=== PATIENT | female | born 1945 | race Caucasian/White ===

== ENCOUNTER 2023-06-07 12:05 | Observation (INO) | payer MEDICARE, MEDICAID, SELFPAY ==
[2023-06-07] VITALS (87 sets, daily range): BP systolic 85–142; BP diastolic 48–81; PULSE 43–75; RESP 10–29; TEMP 35.4–37.2; O2SAT 93–98; BMI 32.3; BMI 19.6
--- NOTE | 2023-06-07 12:07 | ECG_ITS ---
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
--- NOTE | 2023-06-07 12:08 | CT_ITS ---
The [address] [address] Patient Name: JAI CARRERA MRN: [id number] date: 1945 Sex: F Assigned Patient Location: ER Current Patient Location: ED.MAIN Accession/Order Number: [id number] Exam Date: 06/07/2023 12:18 Report Date: 06/07/2023 12:42 At the request of: ALYCE FELIZ Procedure: CT head/brain wo con CT head/brain wo con: 06/07/2023 12:18 PM EDT CLINICAL HISTORY: 78 years old Female with fall, hit forehead. TECHNIQUE: CT head/brain wo con was performed without intravenous contrast administration. Axial CT images are obtained as well as sagittal and coronal reformations. Dose reduction techniques were achieved by using automated exposure control and/or adjustment of mA and/or kV according to patient size and/or use of iterative reconstruction technique. COMPARISON: None FINDINGS: The ventricles, gyri, sulcal patterns, and basal cisterns have a normal size and configuration for the patient's age. No intracranial hemorrhage or extra-axial fluid collection is identified. There is no evidence of focal mass or midline shift. Ill-defined hypodense lesions of the periventricular white matter. The basal ganglia and thalami appear normal. The midbrain and cerebellum appear normal. The paranasal sinuses are normally aerated. Mastoid air cells are normally aerated. No appreciable scalp soft tissue swelling or depressed skull fractures are seen. CT/CT head/brain wo con IMPRESSION: No intracranial hemorrhage, mass effect or midline shift. Microvascular ischemic disease. Mild generalized brain atrophy. Electronically authenticated by: ALEJANDRO THOMAS Date: 06/07/2023 12:42
--- NOTE | 2023-06-07 12:08 | CT_ITS ---
The [address] [address] Patient Name: JAI CARRERA MRN: [facility]:[id number] date: 1945 Sex: F Assigned Patient Location: ED.MAIN Current Patient Location: Accession/Order Number: [id number] Exam Date: 06/07/2023 12:18 Report Date: 06/07/2023 12:46 At the request of: ALYCE FELIZ Procedure: CT cervical spine wo con EXAM: CT cervical spine wo con HISTORY: fall COMPARISON: None. TECHNIQUE: Contiguous transaxial images obtained from skullbase through cervical spine without administration of intravenous contrast. Coronal and sagittal reformations were obtained. Dose reduction: mA and/or kV are were adjusted by automated exposure control software based upon patients height and weight. FINDINGS: There is osteopenia of the cervical spine. There is no prevertebral soft tissue swelling or acute cervical spine fracture. There is mild multilevel degenerative disc disease of the cervical spine. There is minimal anterolisthesis of C6 on C7. There is multilevel and bilateral uncovertebral joint osteoarthritis, most pronounced from C3-C4 through C6-C7. There is multilevel and bilateral facet joint osteoarthritis with left C3-C4 facet ankylosis. Uncovertebral and facet joint osteoarthritis contribute to neural foraminal narrowing, most pronounced at C3-C4 bilaterally and C4-C5 on the right. There is atlantodental articulation osteoarthritis. There is partial opacification of caudal mastoid air cells, left greater than right. There is bilateral carotid artery atherosclerosis. CT/CT cervical spine wo con IMPRESSION: 1. No acute cervical spine fracture. 2. Mild degenerative disc disease of the cervical spine with minimal anterolisthesis of C6 on C7. 3. Uncovertebral and facet joint osteoarthritis contribute to neural foraminal narrowing is most pronounced at C3-C4 and C4-C5 as described. 4. Bilateral carotid artery atherosclerosis. Electronically authenticated by: LAKEISHA JOHNSON Date: 06/07/2023 12:46
--- NOTE | 2023-06-07 12:09 | ED.FALL1 ---
HPI - Fall General Chief Complaint: Fall Stated Complaint: FALL/ HEAD INJURY Time Seen by Provider: 06/07/23 12:07 History of Present Illness HPI Narrative: 78-year-old female presented for a fall. She comes in from [facility] AT [facility] where she had an unwitnessed fall. She fell forward out of the chair and hit her forehead. She was transported here by paramedics after they placed a c-collar. She is unable to provide any history, she has dementia. This happened just before coming into the emergency department. Related Data Home Medications Medication Instructions Recorded Confirmed albuterol sulfate 2.5 mg/0.5 mL 2.5 mg inhalation Q4H PRN 06/07/23 06/07/23 solution for nebulization shortness of breath or wheezing alprazolam 0.5 mg tablet (Xanax) 0.5 mg PO QID PRN anxiety 06/07/23 06/07/23 alprazolam 0.5 mg tablet (Xanax) 0.5 mg PO TID 06/07/23 06/07/23 buspirone 10 mg tablet 20 mg PO TID 06/07/23 06/07/23 carvedilol 25 mg tablet (Coreg) 25 mg PO Q12H 06/07/23 06/07/23 cimetidine 300 mg tablet 300 mg PO Q12H 06/07/23 06/07/23 clonidine HCl 0.1 mg tablet 0.1 mg PO TID 06/07/23 06/07/23 divalproex 500 mg tablet,delayed 500 mg PO Q12H 06/07/23 06/07/23 release (Depakote) docusate sodium 100 mg capsule 100 mg PO DAILY 06/07/23 06/07/23 (Colace) hydrochlorothiazide 12.5 mg tablet 12.5 mg PO DAILY 06/07/23 06/07/23 levothyroxine 112 mcg tablet 112 mcg PO DAILY 06/07/23 06/07/23 (Synthroid) oxybutynin chloride 10 mg 10 mg PO DAILY 06/07/23 06/07/23 tablet,extended release 24 hr ziprasidone HCl 80 mg capsule 80 mg PO DAILY 06/07/23 06/07/23 (Geodon) Allergies Allergy/AdvReac Type Severity Reaction Status Date / Time codeine Allergy Verified 06/07/23 12:08 Sulfa (Sulfonamide Allergy Verified 06/07/23 12:08 Antibiotics) Review of Systems ROS Narrative not obtainable, dementia PFSH PFSH Social History Smoking status: Smoker, status unknown Exam Narrative Exam Narrative: Nurses note and vital signs reviewed and patient is not hypoxic. General: The patient appears in no respiratory distress. She has a c-collar in place and is playing with her eyes closed. Skin: Warm, dry, no pallor noted. There is no rash noted. Head: Normocephalic, two erythematous areas present on her left forehead. No laceration. Eye: Normal conjunctiva, no drainage Ears, Nose, Mouth, and Throat: oral mucosa is moist. Nares patent. Cardiovascular: Regular Rate and Rhythm Respiratory: Patient is in no distress, no accessory muscle use, lungs are clear to auscultation, no wheezing, rales or rhonchi GI: nontender Musculoskeletal: no tenderness to all four extremities including her hips. Neurological: nonverbal for me Psychiatric: cannot be assessed Constitutional Vital Signs, click to edit/add: Last Vital Signs Temp 96 F L 06/07/23 14:44 Pulse 53 L 06/07/23 14:44 Resp 16 06/07/23 14:44 BP 118/67 06/07/23 14:30 Pulse Ox 96 06/07/23 14:20 O2 Del Method Room Air 06/07/23 12:08 Course Vital Signs Vital signs: Vital Signs Temperature 95.8 F L 06/07/23 12:08 Pulse Rate 45 L 06/07/23 12:08 Respiratory Rate 20 06/07/23 12:08 Blood Pressure 90/48 L 06/07/23 12:08 Pulse Oximetry 98 06/07/23 12:08 Oxygen Delivery Method Room Air 06/07/23 12:08 Temperature 96 F L 06/07/23 14:44 Pulse Rate 53 L 06/07/23 14:44 Respiratory Rate 16 06/07/23 14:44 Blood Pressure 118/67 06/07/23 14:30 Pulse Oximetry 96 06/07/23 14:20 Oxygen Delivery Method Room Air 06/07/23 12:08 MDM - Fall MDM Narrative Medical decision making narrative: the patient presented for a fall out of the wheelchair. CAT scan of her head and neck is negative. She was found to be hypothermic, 95.8 rectal upon arrival. Urinary tract infection identified. She was also mildly hypotensive but this has responded to IV fluids and her blood pressure is now 118/67. Obtained and she was given IV Rocephin and she's being admitted to the ICU. No family present with whom to discuss the case. Differential Diagnosis Differential diagnosis: Likely syncope and other (cervical spine fracture, intracranial hemorrhage) Lab Data Attestation: I reviewed the patient's lab results. Labs: Lab Results 06/07/23 06/07/23 06/07/23 Range/Units 12:13 12:21 13:10 WBC 6.8 (4.0-11.0) 10^3/uL RBC 3.33 L (4.20-5.40) 10^6/uL Hgb 10.3 L (12.0-16.0) g/dL Hct 31.3 L (36.0-48.0) % MCV 94.0 (81.0-99.0) fL MCH 30.9 (26.7-34.0) pg MCHC 32.9 (29.9-35.2) g/dL RDW 13.8 (11.0-15.0) % Plt Count 237 (150-450) 10^3/uL MPV 10.6 (9.5-13.5) fL Neut % (Auto) 64.6 (43.0-75.0) % Lymph % (Auto) 24.0 (20.5-60.0) % [place] % (Auto) 8.7 (1.7-12.0) % Eos % (Auto) 1.5 (0.9-7.0) % Baso % (Auto) 0.3 (0.2-2.0) % Neut # (Auto) 4.4 (1.4-6.5) 10^3/uL Lymph # (Auto) 1.6 (1.2-3.8) 10^3/uL [place] # (Auto) 0.6 (0.3-0.8) 10^3/uL Eos # (Auto) 0.1 (0.0-0.7) 10^3/uL Baso # (Auto) 0.0 (0.0-0.1) 10^3/uL Abs Immat Gran (auto) 0.06 H (0.00-0.03) 10^3/uL Imm/Tot Granulo (auto) 0.9 H (0.0-0.5) % Sodium 140 (136-145) mmol/L Potassium 3.5 (3.5-5.1) mmol/L Chloride 104 (98-107) mmol/L Carbon Dioxide 30.9 (21.0-32.0) mmol/L Anion Gap 8.6 BUN 50.0 H (7.0-18.0) mg/dL Creatinine 1.57 H (0.55-1.02) mg/dL Est GFR ( Amer) 39 L (>=60) Est GFR (Non-Af Amer) 32 L (>=60) BUN/Creatinine Ratio 31.8 Glucose 109 H (74-106) mg/dL Calcium 8.6 (8.5-10.1) mg/dL Troponin I High Sens 8.0 (4.0-51.3) pg/mL Urine Color Lt. yellow (YELLOW) Urine Clarity Clear (CLEAR) Urine pH 6.0 (5.0-9.0) Ur Specific Babb 1.020 (1.005-1.025) Urine Protein 30 A (NEG/TRACE) mg/dL Urine Glucose (UA) Negative (NEGATIVE) mg/dL Urine Ketones Trace A (NEGATIVE) mg/dL Urine Occult Blood Moderate A (NEGATIVE) Urine Nitrite Positive A (NEGATIVE) Urine Bilirubin Negative (NEGATIVE) Urine Urobilinogen 2.0 A (0.2-1.0) EU/dL Ur Leukocyte Esterase Large A (NEGATIVE) Urine RBC 10-20 A (0-2) #/HPF Urine WBC >100 A (NONE SEEN) #/HPF Ur Squamous Epith Cells Few A (NONE/RARE) #/LPF Urine Bacteria Large A (NONE SEEN) #/HPF Urine Mucus None seen (NONE SEEN) POC Glucose 124 H (74-106) mg/dL Imaging Data chest x-ray, CT brain, CT C-spine: Radiologist's impression: Procedure: CT cervical spine wo con EXAM: CT cervical spine wo con HISTORY: fall COMPARISON: None. TECHNIQUE: Contiguous transaxial images obtained from skullbase through cervical spine without administration of intravenous contrast. Coronal and sagittal reformations were obtained. Dose reduction: mA and/or kV are were adjusted by automated exposure control software based upon patients height and weight. FINDINGS: There is osteopenia of the cervical spine. There is no prevertebral soft tissue swelling or acute cervical spine fracture. There is mild multilevel degenerative disc disease of the cervical spine. There is minimal anterolisthesis of C6 on C7. There is multilevel and bilateral uncovertebral joint osteoarthritis, most pronounced from C3-C4 through C6-C7. There is multilevel and bilateral facet joint osteoarthritis with left C3-C4 facet ankylosis. Uncovertebral and facet joint osteoarthritis contribute to neural foraminal narrowing, most pronounced at C3-C4 bilaterally and C4-C5 on the right. There is atlantodental articulation osteoarthritis. There is partial opacification of caudal mastoid air cells, left greater than right. There is bilateral carotid artery atherosclerosis. IMPRESSION: 1. No acute cervical spine fracture. 2. Mild degenerative disc disease of the cervical spine with minimal anterolisthesis of C6 on C7. 3. Uncovertebral and facet joint osteoarthritis contribute to neural foraminal narrowing is most pronounced at C3-C4 and C4-C5 as described. 4. Bilateral carotid artery atherosclerosis. Electronically authenticated by: LAKEISHA JOHNSON Date: 06/07/2023 12:46 Procedure: CT head/brain wo con CT head/brain wo con: 06/07/2023 12:18 PM EDT CLINICAL HISTORY: 78 years old Female with fall, hit forehead. TECHNIQUE: CT head/brain wo con was performed without intravenous contrast administration. Axial CT images are obtained as well as sagittal and coronal reformations. Dose reduction techniques were achieved by using automated exposure control and/or adjustment of mA and/or kV according to patient size and/or use of iterative reconstruction technique. COMPARISON: None FINDINGS: The ventricles, gyri, sulcal patterns, and basal cisterns have a normal size and configuration for the patient's age. No intracranial hemorrhage or extra-axial fluid collection is identified. There is no evidence of focal mass or midline shift. Ill-defined hypodense lesions of the periventricular white matter. The basal ganglia and thalami appear normal. The midbrain and cerebellum appear normal. The paranasal sinuses are normally aerated. Mastoid air cells are normally aerated. No appreciable scalp soft tissue swelling or depressed skull fractures are seen. IMPRESSION: No intracranial hemorrhage, mass effect or midline shift. Microvascular ischemic disease. Mild generalized brain atrophy. Electronically authenticated by: ALEJANDRO THOMAS Date: 06/07/2023 12:42 Procedure: XR chest 1V XR chest 1V, 06/07/2023 1:30 PM EDT, [place]001 INDICATION: fall cough. COMPARISON: Chest radiograph from 08/25/2021. TECHNIQUE: Frontal view of the chest obtained. FINDINGS: The patient is rotated to the left. The heart is normal in size. Mild aortic calcification is again noted. The pulmonary vasculature is normal. Slight increased density is again seen in the right cardiophrenic angle, likely representing a prominent epicardial fat pad. No acute infiltrate is seen. There is no evidence of pneumothorax or pleural effusion. The osseous structures appear intact. IMPRESSION: No active pulmonary process. No significant interval change is seen. Electronically authenticated by: YUNIOR KRUEGER Date: 06/07/2023 13:48 Critical Care Time Critical Care Time Critical Care Time: Yes Total Critical Care Time: 35 Attestation: Due to the high probability of sudden and clinically significant deterioration in the patient's condition he/she required the highest level of my preparedness to intervene urgently I provided critical care time including documentation time, medication orders and management, reevaluation, vital sign assessment, ordering and reviewing of lab tests, ordering and reviewing of x-ray studies, and admission orders. Aggregate critical care time is 35 minutes including only time during which I was engaged in work directly related to his/her care and did not include time spent treating other patients simultaneously. Discharge Plan Discharge Chief Complaint: Fall Clinical Impression: Urinary tract infection, Hypothermia Patient Disposition: Admitted As Inpatient Time of Disposition Decision: 14:51 Condition: Fair
[2023-06-07 12:18] LABS: Glucometer 124 mg/dL (74-106)
[2023-06-07 12:59] LABS: Basophils Percent Auto 0.3 % (0.2-2.0); Eosinophils Absolute Auto 0.1 10^3/uL (0.0-0.7); Eosinophils Percent Auto 1.5 % (0.9-7.0); Hematocrit 31.3 % (36.0-48.0); Hemoglobin 10.3 g/dL (12.0-16.0); Immature Granulocytes Abs Auto 0.06 10^3/uL (0.00-0.03); Immature Granulocytes Pct Auto 0.9 % (0.0-0.5); Lymphocytes Absolute Auto 1.6 10^3/uL (1.2-3.8); Mean Corpuscular HGB Conc 32.9 g/dL (29.9-35.2); Mean Corpuscular Hemoglobin 30.9 pg (26.7-34.0); Mean Platelet Volume 10.6 fL (9.5-13.5); Monocytes Absolute Auto 0.6 10^3/uL (0.3-0.8); Monocytes Percent Auto 8.7 % (1.7-12.0); Neutrophils Absolute Auto 4.4 10^3/uL (1.4-6.5); Neutrophils Percent Auto 64.6 % (43.0-75.0); Platelet Count 237 10^3/uL (150-450); Red Blood Count 3.33 10^6/uL (4.20-5.40); Red Cell Distribution Width 13.8 % (11.0-15.0); White Blood Count 6.8 10^3/uL (4.0-11.0)
[2023-06-07 13:09] LABS: Anion Gap 8.6; BUN Creatinine Ratio 31.8; Calcium 8.6 mg/dL (8.5-10.1); Carbon Dioxide 30.9 mmol/L (21.0-32.0); Chloride 104 mmol/L (98-107); Estimated GFR (African America 39 (>=60); Estimated GFR (Non-African Ame 32 (>=60); Glucose 109 mg/dL (74-106); Potassium 3.5 mmol/L (3.5-5.1); Sodium 140 mmol/L (136-145)
[2023-06-07] MEDS: 0.9 % SODIUM CHLORIDE 1,000 ML 1000 ML IV (13:12)
--- NOTE | 2023-06-07 13:38 | XR_ITS ---
The [address] [address] Patient Name: JAI CARRERA MRN: [id number] date: 1945 Sex: F Assigned Patient Location: ER Current Patient Location: ER Accession/Order Number: [id number] Exam Date: 06/07/2023 13:30 Report Date: 06/07/2023 13:48 At the request of: ALYCE FELIZ Procedure: XR chest 1V XR chest 1V, 06/07/2023 1:30 PM EDT, [place]001 INDICATION: fall cough. COMPARISON: Chest radiograph from 08/25/2021. TECHNIQUE: Frontal view of the chest obtained. FINDINGS: The patient is rotated to the left. The heart is normal in size. Mild aortic calcification is again noted. The pulmonary vasculature is normal. Slight increased density is again seen in the right cardiophrenic angle, likely representing a prominent epicardial fat pad. No acute infiltrate is seen. There is no evidence of pneumothorax or pleural effusion. The osseous structures appear intact. XR/XR chest 1V IMPRESSION: No active pulmonary process. No significant interval change is seen. Electronically authenticated by: YUNIOR KRUEGER Date: 06/07/2023 13:48
[2023-06-07 13:39] LABS: Bilirubin Urine NEGATIVE (NEGATIVE); Blood Urine MODERATE (NEGATIVE); Clarity Urine CLEAR (CLEAR); Color Urine LT. YELLOW (YELLOW); Glucose Urine UA NEGATIVE (NEGATIVE); Ketones Urine TRACE mg/dL (NEGATIVE); Leukocyte Esterase Urine LARGE (NEGATIVE); Nitrite Urine POSITIVE (NEGATIVE); Protein Urine 30 mg/dL (NEG/TRACE)
[2023-06-07 13:52] LABS: WBC Urine >100 #/HPF (NONE SEEN)
[2023-06-07 13:53] LABS: Bacteria Urine LARGE #/HPF (NONE SEEN); Mucus Urine NONE SEEN (NONE SEEN); Squamous Epithelial Cell Urine FEW #/LPF (NONE/RARE)
[2023-06-07] MEDS: CEFTRIAXONE 1,000 MG in 0.9 % SODIUM CHLORIDE 50 ML 100 MG IV (14:25)
--- NOTE | 2023-06-07 14:46 | CA_ITS ---
Patient: JAI CARRERA Exam Date: 06/08/2023 : 1945 Gender:F Ordering : Kary Sheridan . Admission #: [id number] Family : Order #: [id number] CLICK HERE TO VIEW EXAM ECHOCARDIOGRAM REPORT PROCEDURE: CA ECHO DOPPLER COMPLETE INDICATIONS: Collapse, hypothermia, hypertension COMPARISON: None. DESCRIPTION: COMPLETE ECHOCARDIOGRAM Real-time transthoracic echocardiography with 2D, M-mode, spectral and color flow Doppler performed. QUALITY: Technical quality was good. LEFT VENTRICLE: Normal chamber size. Moderate concentric left ventricular hypertrophy. Normal systolic function. LV EF: Normal left ventricular ejection fraction, (>55%). DIASTOLIC: Grade II diastolic dysfunction. ATRIAL SEPTUM: Visually appears intact. LEFT ATRIUM: Normal chamber size. RIGHT ATRIUM: Normal chamber size. RIGHT VENTRICLE: Normal chamber size. Normal right ventricular systolic function. TRICUSPID VALVE: Normal mobility and thickness. No stenosis with trivial regurgitation. Doppler studies reveal mildly (35-45) elevated right sided pressures. RVSP 42 mmHg MITRAL VALVE: Mildly thickened with normal mobility. No evidence of mitral valve stenosis. Mild mitral annular calcification. No mitral regurgitation. AORTIC VALVE: Normal trileaflet appearance. Mildly calcified aortic valve. No evidence of aortic valve stenosis. No aortic regurgitation. AORTIC ROOT: Normal diameter and appearance. PULMONIC VALVE: Normal thickness and mobility. No stenosis. Trivial regurgitation. PERICARDIUM: No evidence of pericardial effusion. IVC: IVC is normal in size, does not fully collapse. PLEURA: CONCLUSION: 1. Moderate concentric left ventricular hypertrophy. Normal left ventricular systolic function. LVEF is 55 to 60%. 2. Normal right ventricular size and systolic function. 3. Grade 2 diastolic dysfunction. 4. No significant valvular dysfunction. 5. Mildly elevated right-sided pressures. Adult Echocardiography Procedure Report Left Ventricle LVEDD (3.7 - 5.6 cm): 3.92 cm LVESD (2.2 - 4.0 cm): 2.27 cm LVIVS thickness (0.6 - 1.2 cm): 1.27 cm LVPW thickness (0.5 - 1.0 cm): 1.24 cm e': 0.09 m/s E - e': 8.34 LVOT Max Gradient: 2.95 mm[Hg], 2.78 mm[Hg] LVOT Area (cm2): 0.83 m/s, 0.86 m/s Peak Velocity (LVOT): 0.83 m/s, 0.86 m/s Mean Velocity (LVOT): 0.57 m/s LVOT Diameter 2.10 cm Left Atrium Left Atrium Systolic Dimension: 3.46 cm Mitral Valve MV E to A Ratio: 0.90 Mitral Valve A-Wave Peak Velocity: 0.85 m/s Mitral Valve E-Wave Peak Velocity: 0.77 m/s Right Ventricle Aorta AO Root Diam: 3.48 cm Ascending Ao Diam: 3.23 cm Aortic Valve AoV Area (Peak Rai): 1.55 cm2, 1.55 cm2, 1.60 cm2, 1.60 cm2 AoV Area (VTI): 2.34 cm2, 2.34 cm2 Peak Velocity(Antegrade Flow): 1.86 m/s Peak Gradient(Antegrade Flow): 13.84 mm[Hg] Mean Velocity(Antegrade Flow): 1.18 m/s Mean Gradient(Antegrade Flow): 6.49 mm[Hg] Velocity Time Integral: 40.08 cm Tricuspid Valve Peak Velocity (Regurgitant Flow): 2.93 m/s Pulmonic Valve Peak Velocity: 1.40 m/s Peak Gradient: 7.95 mm[Hg], 7.83 mm[Hg] Right Atrium Right Atrium Systolic Pressure: 44.32 ml, 44.32 ml Dictated by: Jseus Raman M.D. on 06/08/2023 at 17:17 Approved by: Jesus Raman M.D. on 06/08/2023 at 17:22
--- NOTE | 2023-06-07 14:59 | PM.HP ---
H&P: HPI History of Present Illness Chief complaint: FALL/HEAD INJURY Narrative: patient is a 78-year-old female with past medical history of what looks to be dementia, possible seizure disorder, GERD, hypertension, hypothyroidism who presented from an extended care facility after she fell out of her wheelchair. Uncertain as to how long she had been down but it appeared as if she hit her forehead as she had an abrasion. Patient has a history of dementia and is not able to provide any of her own history and review of systems also cannot be completed secondary to patient's current mental state. I am uncertain as to patient's baseline status. Patient presented to the Emergency Room by EMS and she was found to be hypothermic at ninety-five degrees. Review of Systems ROS Status of ROS unobtainable due to medical condition [facility] Medical History (Updated 06/07/23 @ 16:40 by Nisreen Arambula) Anxiety ?F41.9 - Anxiety disorder, unspecified (ICD-10) COVID ?U07.1 - COVID-19 (ICD-10) GERD (gastroesophageal reflux disease) ?K21.9 - Gastro-esophageal reflux disease without esophagitis (ICD-10) Glaucoma ?H40.9 - Unspecified glaucoma (ICD-10) Hypertension ?I10 - Essential (primary) hypertension (ICD-10) Hypothyroid ?E03.9 - Hypothyroidism, unspecified (ICD-10) Insomnia ?G47.00 - Insomnia, unspecified (ICD-10) Osteoporosis ?M81.0 - Age-related osteoporosis without current pathological fracture (ICD-10) Schizoaffective disorder ?F25.9 - Schizoaffective disorder, unspecified (ICD-10) Suicidal ideation ?R45.851 - Suicidal ideations (ICD-10) Vascular dementia Social History Smoking status: Smoker, status unknown Meds Home Medications and Allergies Home Medications Medication Instructions Recorded Confirmed Type albuterol sulfate 2.5 mg/0.5 mL 2.5 mg inhalation Q4H PRN 06/07/23 06/07/23 History solution for nebulization shortness of breath or wheezing alprazolam 0.5 mg tablet (Xanax) 0.5 mg PO QID PRN anxiety 06/07/23 06/07/23 History alprazolam 0.5 mg tablet (Xanax) 0.5 mg PO TID 06/07/23 06/07/23 History buspirone 10 mg tablet 20 mg PO TID 06/07/23 06/07/23 History carvedilol 25 mg tablet (Coreg) 25 mg PO Q12H 06/07/23 06/07/23 History cimetidine 300 mg tablet 300 mg PO Q12H 06/07/23 06/07/23 History clonidine HCl 0.1 mg tablet 0.1 mg PO TID 06/07/23 06/07/23 History divalproex 500 mg tablet,delayed 500 mg PO Q12H 06/07/23 06/07/23 History release (Depakote) docusate sodium 100 mg capsule 100 mg PO DAILY 06/07/23 06/07/23 History (Colace) hydrochlorothiazide 12.5 mg tablet 12.5 mg PO DAILY 06/07/23 06/07/23 History levothyroxine 112 mcg tablet 112 mcg PO DAILY 06/07/23 06/07/23 History (Synthroid) oxybutynin chloride 10 mg 10 mg PO DAILY 06/07/23 06/07/23 History tablet,extended release 24 hr ziprasidone HCl 80 mg capsule 80 mg PO DAILY 06/07/23 06/07/23 History (Geodon) Allergies Allergy/AdvReac Type Severity Reaction Status Date / Time codeine Allergy Verified 06/07/23 12:08 Sulfa (Sulfonamide Allergy Verified 06/07/23 12:08 Antibiotics) Exam Narrative Exam Narrative: General: is not alert, or oriented and only opens her eyes when you speak loudly Skin: no visible rashes, or ulcers Head: right forehead with minor abrasion Eyes: PERRLA, no nystagmus present, conjunctiva clear, no scleral icterus Nose: symmetric, no discharge Neck: no masses palpated, normal thyroid Heart: Normal rate and rhythm, no murmurs/rubs/gallops Lungs: no audible wheezes, crackles and normal breath sounds all lung monsivais Abdomen: Normal audible bowel sounds, no distension, No palpable masses, no organomegaly, no rebound/guarding/ or rigidity Musculoskeletal: swelling bilateral lower extremities Constitutional Vital Signs, click to edit/add: Last Vital Signs Temp 96 F L 06/07/23 14:44 Pulse 53 L 10/19/23 14:44 Resp 16 06/07/23 14:44 BP 118/67 06/07/23 14:30 Pulse Ox 96 06/07/23 14:20 O2 Del Method Room Air 06/07/23 12:08 Results Labs Labs: Short CBC 06/07/23 Range/Units 12:21 WBC 6.8 (4.0-11.0) 10^3/uL Hgb 10.3 L (12.0-16.0) g/dL Hct 31.3 L (36.0-48.0) % Plt Count 237 (150-450) 10^3/uL BMP 06/07/23 12:21 Sodium 140 Potassium 3.5 Chloride 104 Carbon Dioxide 30.9 BUN 50.0 H Creatinine 1.57 H Glucose 109 H Calcium 8.6 Urine 06/07/23 Range/Units 13:10 Urine Color Lt. yellow (YELLOW) Urine Clarity Clear (CLEAR) Urine pH 6.0 (5.0-9.0) Ur Specific [place] 1.020 (1.005-1.025) Urine Protein 30 A (NEG/TRACE) mg/dL Urine Glucose (UA) Negative (NEGATIVE) mg/dL Assessment and Plan Assessment and Plan (1) Hypothermia: Assessment and Plan: 95.8 rectal.most likely secondary to UTI/ possible sepsis, rhabdomyolysis from being down on the ground. Bear huggers, warm fluids and will see if we can achieve improved core temp. check electrolytes, blood cultures, urine sent for culture, check CK level, thyroid level. Also on Antipsychotics which complicates things and makes regulation of core temp difficult sometimes. (2) Urinary tract infection: Assessment and Plan: Placed on zosyn, WBC 6.8, UA positive, urine culture pending, place cath, monitor strict I&Os (3) Schizoaffective disorder: Assessment and Plan: continue home medications once mental status improves, taking depakote, Geodon, Xanax, buspar (4) Vascular dementia: Assessment and Plan: uncertain patient's baseline, attempted to reach Guardian, Grand daughter Blessing [phone] without success, came from [facility] and is wheelchair bound. Need to address code status with family (5) Insomnia: Assessment and Plan: takes geodon at night (6) Hypothyroid: Assessment and Plan: continue levothyroxine, check TSH (7) Hypertension: Assessment and Plan: hold for now, hypotensive, given IVF (8) Anxiety: Assessment and Plan: hold xanax for now Plan patient is a full code SCD's for now given recent fall Patient is in inpatient status and is expected to stay more than 2 midnights
[2023-06-07 15:09] LABS: INR 1.13; Partial Thromboplastin Time 25.2 sec (22.3-36.2); Prothrombin Time 11.9 sec (9.0-11.6)
[2023-06-07 15:11] LABS: Glucometer 109 mg/dL (74-106)
[2023-06-07 15:18] LABS: Creatine Kinase 44 U/L (26-192); Magnesium 1.9 mg/dL (1.8-2.4); Phosphorus 4.4 mg/dL (2.6-4.7); Thyroid Stimulating Hormone 4.833 uIU/mL (0.358-3.740)
[2023-06-07 15:24] LABS: Amphetamine Screen Urine NEGATIVE (NEGATIVE); Barbiturates Screen Urine NEGATIVE (NEGATIVE); Benzodiazepines Screen Urine POSITIVE (NEGATIVE); Buprenorphine Screen Urine NEGATIVE (NEGATIVE); Cannabinoid Screen Urine NEGATIVE (NEGATIVE); Cocaine Screen Urine NEGATIVE (NEGATIVE); Methadone Screen Urine NEGATIVE (NEGATIVE); Methamphetamines Screen Urine NEGATIVE (NEGATIVE); Opiate Screen Urine NEGATIVE (NEGATIVE); Oxycodone Screen Urine NEGATIVE (NEGATIVE); Phencyclidine Screen Urine NEGATIVE (NEGATIVE); Tricyclic Antidepressant Urine NEGATIVE (NEGATIVE)
[2023-06-07] MEDS: LACTATED RINGER'S SOLUTION 1,000 ML 150 ML IV ×2 (15:38→21:39)
[2023-06-07] MEDS: PANTOPRAZOLE SODIUM 40 MG VIAL IV (15:40)
[2023-06-07] MEDS: PIPERACILLIN SODIUM/TAZOBACTAM 3.375 GM in 0.9 % SODIUM CHLORIDE 50 ML IV (17:03)
[2023-06-07 17:39] LABS: Lactate/Lactic Acid 1.3 mmol/L (0.4-2.0)
--- NOTE | 2023-06-07 19:42 | RESP.RT ---
No PRN breathing tx given at this time. No respiratory distress noted.
[2023-06-07] MEDS: DIVALPROEX SODIUM 500 MG TABLET.DR PO (21:34)
[2023-06-07] MEDS: ZIPRASIDONE HCL 20 MG CAPSULE 80 MG PO (21:34)
[2023-06-08] VITALS (21 sets, daily range): BP systolic 133–166; BP diastolic 53–73; PULSE 51–80; RESP 0–32; TEMP 36.6–36.9; O2SAT 90–97
[2023-06-08] MEDS: PIPERACILLIN SODIUM/TAZOBACTAM 3.375 GM in 0.9 % SODIUM CHLORIDE 50 ML IV ×2 (02:00→09:20)
[2023-06-08 03:58] LABS: Basophils Percent Auto 0.5 % (0.2-2.0); Eosinophils Absolute Auto 0.1 10^3/uL (0.0-0.7); Eosinophils Percent Auto 1.3 % (0.9-7.0); Hematocrit 28.7 % (36.0-48.0); Hemoglobin 9.4 g/dL (12.0-16.0); Immature Granulocytes Abs Auto 0.04 10^3/uL (0.00-0.03); Immature Granulocytes Pct Auto 0.5 % (0.0-0.5); Lymphocytes Absolute Auto 2.4 10^3/uL (1.2-3.8); Lymphocytes Percent Auto 31.8 % (20.5-60.0); Mean Corpuscular HGB Conc 32.8 g/dL (29.9-35.2); Mean Corpuscular Hemoglobin 30.7 pg (26.7-34.0); Mean Corpuscular Volume 93.8 fL (81.0-99.0); Mean Platelet Volume 9.8 fL (9.5-13.5); Monocytes Absolute Auto 0.8 10^3/uL (0.3-0.8); Monocytes Percent Auto 10.1 % (1.7-12.0); Neutrophils Absolute Auto 4.1 10^3/uL (1.4-6.5); Neutrophils Percent Auto 55.8 % (43.0-75.0); Platelet Count 204 10^3/uL (150-450); Red Blood Count 3.06 10^6/uL (4.20-5.40); Red Cell Distribution Width 13.7 % (11.0-15.0); White Blood Count 7.4 10^3/uL (4.0-11.0)
[2023-06-08 04:17] LABS: Albumin Globulin Ratio 0.5; Alkaline Phosphatase 64 U/L (46-116); Anion Gap 9.4; Aspartate Amino Transferase 10 U/L (15-37); BUN Creatinine Ratio 36.7; Bilirubin Total 0.5 mg/dL (0.2-1.0); Calcium 8.2 mg/dL (8.5-10.1); Carbon Dioxide 28.9 mmol/L (21.0-32.0); Chloride 105 mmol/L (98-107); Estimated GFR (African America >60 (>=60); Estimated GFR (Non-African Ame 55 (>=60); Globulin 4.1 g/dL; Glucose 79 mg/dL (74-106); Potassium 3.3 mmol/L (3.5-5.1); Sodium 140 mmol/L (136-145); Total Protein 6.1 g/dL (6.4-8.2)
[2023-06-08 04:33] LABS: Alanine Aminotransferase <6 U/L (14-59)
[2023-06-08] MEDS: LACTATED RINGER'S SOLUTION 1,000 ML 150 ML IV (05:06)
[2023-06-08] MEDS: LEVOTHYROXINE SODIUM 112 MCG TABLET PO (06:13)
--- NOTE | 2023-06-08 08:26 | P.PN_ITS ---
Progress Note: Subjective Subjective Interval history: Patient has a history of dementia and is not able to provide any of her own history with a much more alert today. She does answer simple questions and states that nothing seems to be bothering her today. She is sitting up in the bed, appears in no acute distress. I spoke with her granddaughter Jesscia last night just after admission exam and she reports at baseline she is wheelchair bound and due to her dementia does not communicate much. Her granddaughter's description patient appears back to baseline. Temperature improved to 98.0 with a bear hugger and fluid warmers. She has been eating and drinking. Exam Narrative Exam Narrative: General: is alert, but not oriented to person or place Skin: no visible rashes, or ulcers Head: right forehead with minor abrasion Eyes: PERRLA, no nystagmus present, conjunctiva clear, no scleral icterus Nose: symmetric, no discharge Neck: no masses palpated, normal thyroid Heart: Normal rate and rhythm, no murmurs/rubs/gallops Lungs: no audible wheezes, crackles and normal breath sounds all lung monsivais Abdomen: Normal audible bowel sounds, no distension, No palpable masses, no organomegaly, no rebound/guarding/ or rigidity Musculoskeletal: swelling bilateral lower extremities Constitutional Vital Signs, click to edit/add: Last Vital Signs Temp 98.3 F 06/08/23 08:00 Pulse 58 L 06/08/23 08:00 Resp 16 06/08/23 08:00 BP 163/71 H 06/08/23 08:00 Pulse Ox 97 06/08/23 08:00 O2 Del Method Room Air 06/08/23 08:00 Progress Note: Objective Labs Labs: Short CBC 06/07/23 06/08/23 Range/Units 12:21 03:46 WBC 6.8 7.4 (4.0-11.0) 10^3/uL Hgb 10.3 L 9.4 L (12.0-16.0) g/dL Hct 31.3 L 28.7 L (36.0-48.0) % Plt Count 237 204 (150-450) 10^3/uL BMP 06/07/23 06/08/23 12:21 03:46 Sodium 140 140 Potassium 3.5 3.3 L Chloride 104 105 Carbon Dioxide 30.9 28.9 BUN 50.0 H 36.0 H Creatinine 1.57 H 0.98 Glucose 109 H 79 Calcium 8.6 8.2 L Cardiac Enzymes 06/07/23 Range/Units 12:21 Total Creatine Kinase 44 (26-192) U/L Liver Function 06/08/23 Range/Units 03:46 Total Bilirubin 0.5 (0.2-1.0) mg/dL AST 10 L (15-37) U/L ALT <6 L (14-59) U/L Alkaline Phosphatase 64 (46-116) U/L Albumin 2.0 L (3.4-5.0) g/dL Urine 06/07/23 Range/Units 13:10 Urine Color Lt. yellow (YELLOW) Urine Clarity Clear (CLEAR) Urine pH 6.0 (5.0-9.0) Ur Specific [place] 1.020 (1.005-1.025) Urine Protein 30 A (NEG/TRACE) mg/dL Urine Glucose (UA) Negative (NEGATIVE) mg/dL Progress Note: A&P Assessment and Plan (1) Hypothermia: Assessment and Plan: resolved faster than expected. presenting temp was 95.8 rectal. most likely se condary to UTI/ possible sepsis, rhabdomyolysis ruled out with normal CK levels. Bear huggers, warm fluids she improved core temp. blood cultures, and urine sent for culture. Also on Antipsychotics which complicates things and makes regulation of core temp difficult sometimes. (2) Urinary tract infection: Assessment and Plan: Placed on zosyn, WBC 7.4, UA positive, urine culture pending, place cath due to patient being obtunded yesterday, monitor strict I&Os; can d/c [facility] (3) Schizoaffective disorder: Assessment and Plan: continue home medications today since mental status improved, taking depakote, Geodon, Xanax, buspar (4) Vascular dementia: Assessment and Plan: patient appears back to description of baseline (5) Insomnia: Assessment and Plan: takes geodon at night (6) Hypothyroid: Assessment and Plan: will increase levothyroxine to 125mcg daily, TSH elevated (7) Hypertension: Assessment and Plan: resume home meds (8) Anxiety: Assessment and Plan: resume home meds Plan patient is a full code SCD's for now given recent fall Patient is in inpatient status and is expected to stay more than 2 midnights
[2023-06-08] MEDS: DIVALPROEX SODIUM 500 MG TABLET.DR PO (09:20)
--- NOTE | 2023-06-08 09:32 | SWNOTE1 ---
SW called over to [facility] and pt is [facility].
--- NOTE | 2023-06-08 11:25 | CM.NOTE ---
Rounds made with Dr. Sheridan ok to discharge back to [facility] today.
[2023-06-08] MEDS: ALPRAZOLAM 0.5 MG TABLET PO (12:34)
--- NOTE | 2023-06-08 14:04 | P.DS_ITS ---
DS: Providers Provider Date of admission: 06/08/23 12:25 Primary care physician: GERARDO MAHAN Admitting clinician: Kary Sheridan Consults: 06/07/23 14:46 Occupational Therapy Eval and Treat Routine Reason for consultation: wheel chair bound Has provider been notified: No Physical Therapy Eval and Treat Routine Reason for consultation: wheel chair bound Has provider been notified: No Discharging clinician: Kary Sheridan DS: Diagnosis Discharge Diagnosis (1) Hypothermia: (2) Urinary tract infection: (3) Schizoaffective disorder: (4) Vascular dementia: (5) Insomnia: (6) Hypothyroid: (7) Hypertension: (8) Anxiety: DS: Summary Hospital Course Hospital Course: please see progress note dated 06/08/23 only change in medications was an increase to levothyroxine 125 ?g daily. Recommend follow-up thyroid function tests in approximately one month. Also addition of Augmentin 500/125 mg twice a day for a total of seven days for urinary tract infection. Patient will be transferred to inpatient detention facility and is to return with any worsening symptoms or conditions. Patient wheelchair bound, has dementia and seems to be back to her baseline. Status at Discharge Functional status at discharge: wheelchair bound Time Spent with Patient Time attestation: Total time spent providing and/or coordinating discharge services: Time spent: greater than 30 minutes Exam Narrative Exam Narrative: no changes in discharge exam today from exam on progress note dated 06/08/23 Constitutional Vital Signs, click to edit/add: Last Vital Signs Temp 97.8 F 06/08/23 11:54 Pulse 64 06/08/23 11:54 Resp 16 06/08/23 11:54 BP 166/73 H 06/08/23 11:54 Pulse Ox 96 06/08/23 11:54 O2 Del Method Room Air 06/08/23 11:54 DS: Data Data Completed and Pending Labs on day of discharge: Labs from last 24 hours 06/08/23 06/07/23 06/07/23 03:46 15:09 13:10 WBC 7.4 RBC 3.06 L Hgb 9.4 L Hct 28.7 L MCV 93.8 MCH 30.7 MCHC 32.8 RDW 13.7 Plt Count 204 MPV 9.8 Neut % (Auto) 55.8 Lymph % (Auto) 31.8 [place] % (Auto) 10.1 Eos % (Auto) 1.3 Baso % (Auto) 0.5 Neut # (Auto) 4.1 Lymph # (Auto) 2.4 [place] # (Auto) 0.8 Eos # (Auto) 0.1 Baso # (Auto) 0.0 Abs Immat Gran (auto) 0.04 H Imm/Tot Granulo (auto) 0.5 PT INR APTT Sodium 140 Potassium 3.3 L Chloride 105 Carbon Dioxide 28.9 Anion Gap 9.4 BUN 36.0 H Creatinine 0.98 Est GFR ( Amer) >60 Est GFR (Non-Af Amer) 55 L BUN/Creatinine Ratio 36.7 Glucose 79 Lactate Calcium 8.2 L Phosphorus Magnesium Total Bilirubin 0.5 AST 10 L ALT <6 L Alkaline Phosphatase 64 Total Creatine Kinase Total Protein 6.1 L Albumin 2.0 L Globulin 4.1 Albumin/Globulin Ratio 0.5 TSH Urine Opiates Screen Negative Ur Buprenorphine Scrn Negative Ur Oxycodone Screen Negative Urine Methadone Screen Negative Ur Propoxyphene Screen Negative Ur Barbiturates Screen Negative U Tricyclic Antidepress Negative Ur Phencyclidine Scrn Negative Ur Amphetamines Screen Negative U Methamphetamines Scrn Negative U Benzodiazepines Scrn Positive A Urine Cocaine Screen Negative U Cannabinoids Screen Negative POC Glucose 109 H 06/07/23 12:21 WBC RBC Hgb Hct MCV MCH MCHC RDW Plt Count MPV Neut % (Auto) Lymph % (Auto) [place] % (Auto) Eos % (Auto) Baso % (Auto) Neut # (Auto) Lymph # (Auto) [place] # (Auto) Eos # (Auto) Baso # (Auto) Abs Immat Gran (auto) Imm/Tot Granulo (auto) PT 11.9 H INR 1.13 APTT 25.2 Sodium Potassium Chloride Carbon Dioxide Anion Gap BUN Creatinine Est GFR ( Amer) Est GFR (Non-Af Amer) BUN/Creatinine Ratio Glucose Lactate 1.3 Calcium Phosphorus 4.4 Magnesium 1.9 Total Bilirubin AST ALT Alkaline Phosphatase Total Creatine Kinase 44 Total Protein Albumin Globulin Albumin/Globulin Ratio TSH 4.833 H Urine Opiates Screen Ur Buprenorphine Scrn Ur Oxycodone Screen Urine Methadone Screen Ur Propoxyphene Screen Ur Barbiturates Screen U Tricyclic Antidepress Ur Phencyclidine Scrn Ur Amphetamines Screen U Methamphetamines Scrn U Benzodiazepines Scrn Urine Cocaine Screen U Cannabinoids Screen POC Glucose Discharge Plan Discharge Disposition: Xfer Inpatient Rehab Fac Condition: Fair Discharge Medications: New levothyroxine 125 mcg Tablet 125 mcg PO QD 30 Days Qty: 30 0RF amoxicillin-pot clavulanate [Augmentin] 500-125 mg tablet 1 tab PO Q12H 7 Days Qty: 14 0RF Continued albuterol sulfate 2.5 mg/0.5 mL solution for nebulization 2.5 mg inhalation Q4H PRN (Reason: shortness of breath or wheezing) buspirone 10 mg tablet 20 mg PO TID clonidine HCl 0.1 mg tablet 0.1 mg PO TID cimetidine 300 mg tablet 300 mg PO Q12H Rx Instructions: give at meals and bedtime docusate sodium [Colace] 100 mg capsule 100 mg PO DAILY carvedilol [Coreg] 25 mg tablet 25 mg PO Q12H Rx Instructions: must administer with a meal/food divalproex [Depakote] 500 mg tablet,delayed release (DR/EC) 500 mg PO Q12H ziprasidone HCl [Geodon] 80 mg capsule 80 mg PO DAILY Rx Instructions: give with food (meal/snack) hydrochlorothiazide 12.5 mg tablet 12.5 mg PO DAILY oxybutynin chloride 10 mg tablet extended release 24hr 10 mg PO DAILY alprazolam [Xanax] 0.5 mg tablet 0.5 mg PO QID PRN (Reason: anxiety) alprazolam [Xanax] 0.5 mg tablet 0.5 mg PO TID Discontinued levothyroxine [Synthroid] 112 mcg tablet 112 mcg PO DAILY Forms: Portal Instructions Discharge location: [facility] in [place], [place]
--- NOTE | 2023-06-08 14:37 | SWNOTE1 ---
Pt is ready for dc back to [facility] dri[facility]. SUNITHA set up [facility] due to dementia. [facility] will be here around 3:00 to take her back. SUNITHA called guardian, no anwer. SUNITHA called sister Susi, no answer. SUNITHA called pt's sister Beth and let her know time of discharge. SUNITHA reviewed NGUYEN form with Beth, she had no questions. SUNITHA signed on behalf of reviewing with pt's vaccine customer representative. SUNITHA sent over dc orders to [facility] and updated packet. Nursing, [facility], and family aware of discharge time.
== END 2023-06-08 15:34 ==
LOC: ER 12:35 → ICU 14:51
PROVIDERS: Admitting Provider Family Medicine; Emergency Provider Emergency Medicine; Visit Provider Family Medicine
DX: N39.0 Urinary tract infection, site not specified (principal); R68.0 Hypothermia, not associated with low environmental temperature; F25.9 Schizoaffective disorder, unspecified; F01.50 Vascular dementia, unspecified severity, without behavioral disturbance, psychotic disturbance, mood disturbance, and anxiety; G47.00 Insomnia, unspecified; E03.9 Hypothyroidism, unspecified; I10 Essential (primary) hypertension; F41.9 Anxiety disorder, unspecified; S00.81XA Abrasion of other part of head, initial encounter; W05.0XXA Fall from non-moving wheelchair, initial encounter; Z99.3 Dependence on wheelchair; Z79.899 Other long term (current) drug therapy; Z79.890 Hormone replacement therapy; K21.9 Gastro-esophageal reflux disease without esophagitis; M81.0 Age-related osteoporosis without current pathological fracture
CPT/HCPCS: 36415; 51702; 70450; 71045; 72125; 80048; 80053; 80307; 81001; 82550; 82948; 83605; 83735; 84100; 84443; 84484; 85025; 85610; 85730; 87040; 93005; 93306; 94761; 96365; 96366; 96375; 97162; 99285; G0378